=== PATIENT | male | born 1985 | race Two or more races ===

== ENCOUNTER 2024-12-12 11:08 | Emergency (ER) | payer MEDICAID, SELFPAY ==
[2024-12-12 11:09] VITALS: BMI 25.7
[2024-12-12 11:48] VITALS: BP 145/96; PULSE 84; RESP 17; TEMP 36.9; O2SAT 96
--- NOTE | 2024-12-12 12:37 | EDNOTE_ITS ---
<Statement entered by Vanessa Villalta MD - 12/13/24 07:10> As co-signing physician, I was present and available for consult prn. I concur with the plan and care as documented by the midlevel provider. ED General RME/HPI General Chief complaint: General Adult/Misc Complain Stated complaint: BRUISING INNER THIGHS, ANKLE SWELLING SINCE YEST Time Seen by Provider: 12/12/24 12:35 Arrival date/time: 12/12/24 11:08 CC: Nausea fatigue swollen feet mid back pain and bruising to the proximal medial thighs HPI: 4 days ago insidious onset no prior history similar events no medications allergic to latex denies fever chest pain shortness of breath or difficulty breathing. Patient denies hitting or scratching his inner thighs. Related Data Allergies Allergy/AdvReac Type Severity Reaction Status Date / Time latex Allergy Intermediate Itching Verified 12/12/24 11:12 Review of Systems Review of Systems Narrative Review of Systems: GEN: No fever, no chills, no weight loss EYES: No discharge, no visual changes, no pain HEENT: No ear pain, no congestion, no sore throat PULM: No shortness of breath, no cough, no congestion CV: No chest pain, no dyspnea on exertion, no palpitations GI: + nausea, no vomiting, no diarrhea, no pain, no constipation : No frequency, no urgency, no dysuria MUSC/SKEL: No joint pain, + back pain SKIN: No rash PSYCH: No hallucinations, no depression HEME/LYMPH: No easy bleeding or bruising tendencies NEURO: No weakness, no headache Past Medical History Past Medical History CARDIAC: Negative Congestive Heart Failure RESPIRATORY: Positive Asthma; Negative Chronic Obstructive Pulmonary Disease (COPD) GENITOURINARY: Negative Renal Disease ENDOCRINE: Negative Diabetes Mellitus Type 1 or Diabetes Mellitus Type 2 Social History SMOKING STATUS: Current every day smoker ED Exam Narrative Physical exam: [General: Obese not in any acute distress Head normocephalic HEENT: Eyes pupils are PERRLA EOMs are intact mouth pink moist membranes uvula is midline swallow symmetrical phonation is normal all the subsystems of HEENT are within acceptable limits Neck is supple nontender Chest equal chest rise nontender to palpation Respiratory: Clear to auscultation no wheezes crackles or rubs CV: Rate rhythm is regular no murmurs rubs or clicks Abdomen is distended secondary to body habitus soft nontender no masses positive bowel sounds all 4 quadrants Back: No CVA tenderness no spinous process tenderness from cervical spine thoracic and lumbar spine Skin: Ecchymosis to the medial thighs with the left thigh being a hand and/or scratch like pattern. Nonspecific pattern on the right inner thigh. Intact no petechiae rash induration ulceration or crepitus Extremities: Moving all extremity against resistance cap refill less than 2 seconds neurosensory intact. 2+ nonpitting edema in the lower extremities Neuro: Awake alert oriented x3 Glascow coma 15 no focal deficits] Course Quality Measures none Orders Category Date Time Status B-Type Natriuretic Peptide Stat Lab 12/12/24 13:00 Completed CBC Stat Lab 12/12/24 13:00 Completed Comprehensive Metabolic Panel Stat Lab 12/12/24 13:00 Completed Drug Screen,Urine Stat Lab 12/12/24 12:55 Completed LDH (Lactate Dehydrogenase) Stat Lab 12/12/24 13:00 Completed Magnesium Stat Lab 12/12/24 13:00 Completed Partial Thromboplastin Time Stat Lab 12/12/24 13:00 Completed Prothrombin Time with INR Stat Lab 12/12/24 13:00 Completed Troponin I Stat Lab 12/12/24 13:00 Completed Urinalysis Stat Lab 12/12/24 12:55 Completed Vital Signs Vital signs: Vital Signs Temperature 98.5 F 12/12/24 11:48 Pulse Rate 84 12/12/24 11:48 Respiratory Rate 17 12/12/24 11:48 Blood Pressure 145/96 H 12/12/24 11:48 Pulse Oximetry (%) 96 12/12/24 11:48 Oxygen Delivery Method Room Air 12/12/24 11:48 Discharge Plan Plan Patient Disposition: HOME (Self Care) Patient condition on transfer: Stable Prescriptions/Referrals Referrals: Paul Fischer MD [Primary Care Provider] - In 1 week Problem List Clinical Impression: Polysubstance abuse, Multiple ecchymoses of thigh Patient/Caregiver Discharge Instructions Other Activity Instructions:: There is no acute finding or infection in your body at this time I suspect this is all done by your hands. Please stop using street drugs follow-up with your primary care provider. Education Materials: ED Soft Tissue Contusion, ED Drug Abuse Print Language: [place] Stand Alone Forms: Lala Award Info., Patient Portal Info Letter PA/ANALYST Supervising Physician EDDIE Supervising Physician: Narayan Tam ENP [facility] Clinical Information Provided by patient Medical Records Reviewed [facility] Meds/Rx Considered, not Ordered None Labs/Rad/Tests considered, not Ordered None EKG EKG not done Lab Interpretation Lab(s) interpretation(s): CBC shows no acute leukocytosis anemia thrombocytopenia Coags within acceptable limits CMP shows no significant electrolyte imbalances renal impairment magnesium is low at 1.4 no other electrolyte imbalances renal impairment transaminitis or T. bili elevation. UA shows 1+ blood but no other indications of UTI U-Tox is positive for fentanyl cocaine and marijuana. Imaging Imaging interpretation: none Medication Administration(s) I suspect this is polysubstance abuse and paranoia of the patient's ecchymosis to the thighs appear to be self-inflicted however I cannot verify this at time there is no acute finding patient be discharged home. Diagnosis Differential diagnosis: ITP cellulitis allergic reaction Dispositon Disposition: Discharge Home
[2024-12-12 13:04] LABS: Collection Type, Urine Clean Catch
[2024-12-12 13:08] LABS: Bilirubin,Urine Negative (Negative); Blood,Urine 1+ (Negative); Clarity,Urine Clear (Clear/Hazy); Color,Urine Yellow (Lt Yel-Yel); Glucose, Urine Negative (Negative); Ketones,Urine Negative (Negative); Leukocyte Esterase,Urine Negative (Negative); Nitrite,Urine Negative (Negative); PH,Urine 5.5 (5.0-7.0); Protein,Urine Negative (Neg - Trace); RBC,Urine 7 /hpf (0-3); Specific Gravity,Urine 1.026 (1.001-1.035); Squamous Epithelial Cell,Urine < 1 /hpf (0-5); Urobilinogen,Urine Negative mg/dL (0.0-1.0); WBC,Urine 2 /hpf (0-5)
[2024-12-12 13:15] LABS: Amphetamine/Methamp Scrn,U Negative (Negative); Barbiturate Screen,Urine Negative (Negative); Benzodiazepines Screen,Urine Negative (Negative); Benzoylecgonine Screen, Ur Positive (Negative); Fentanyl Screen,Urine Positive (Negative); Opiate Screen,Urine Negative (Negative); THC Screen,Urine Positive (Negative)
[2024-12-12 13:20] LABS: Basophils # (Auto) 0.1 Thou/mm3 (0.0-0.2); Basophils % (Auto) 1 % (0-2.5); Eosinophils # (Auto) 0.7 Thou/mm3 (0.0-0.5); Eosinophils % (Auto) 7 % (0-10); Hematocrit 41.0 % (41.0-53.0); Hemoglobin 12.9 g/dL (13.5-16.0); Immature Granulocytes Auto 0.04 Thou/mm3 (0.00-0.00); Lymphocytes # (Auto) 2.2 Thou/mm3 (1.0-4.8); Lymphocytes % (Auto) 23 % (10-50); Mean Corpuscular HGB Conc 31.5 g/dl (31.0-37.0); Mean Corpuscular Hemoglobin 27.7 pg (25.0-35.0); Mean Corpuscular Volume 88 fL (80-100); Monocytes # (Auto) 0.8 Thou/mm3 (0.0-0.8); Monocytes % (Auto) 8 % (0-12); Neutrophils # (Auto) 5.9 Thou/mm3 (1.8-7.7); Neutrophils % (Auto) 62 % (37-80); Nucleated Red Blood Cell # 0.00 Thou/mm3 (0.00-0.00); Nucleated Red Blood Cell % 0 /100 WBC (0); Platelet Count 263 Thou/mm3 (140-440); RDW Standard Deviation 41.7 fL (35.1-43.9); Red Blood Count 4.66 Miln/mm3 (4.50-5.90); White Blood Count 9.5 Thou/mm3 (3.8-10.6)
[2024-12-12 13:35] LABS: B-Type Natriuretic Peptide 46 pg/mL (0-100)
[2024-12-12 13:37] LABS: Alanine Aminotransferase 30 U/L (10-49); Albumin, Serum 4.5 gm/dL (3.5-5.0); Albumin/Globulin Ratio 2.0 (1.2-2.2); Alkaline Phosphatase 71 U/L (46-116); Anion Gap 8 (7-16); Aspartate Amino Transferase 23 U/L (0-34); BUN/Creatinine Ratio 8 Ratio (12-20); Bilirubin,Total 0.3 mg/dL (0.3-1.2); Blood Urea Nitrogen 6 mg/dL (9-23); Calcium 9.2 mg/dL (8.3-10.6); Calcium (Corrected) 9.2 mg/dL (8.5-10.1); Carbon Dioxide 28.4 mMol/L (20.0-31.0); Chloride 105 mMol/L (98-107); Creatinine (Component) 0.8 mg/dL (0.6-1.3); Estimated Creatinine Clearance 133.3 mL/min (>60); Globulin 2.3 gm/dL (2.3-3.5); Glucose 104 mg/dL (74-106); INR 1.0 (0.9-1.3); LDH (Lactate Dehydrogenase) 230 U/L (120-246); Magnesium 1.4 mg/dL (1.6-2.6); Osmolality,Calculated 278 (275-295); Partial Thromboplastin Time 27.0 Seconds (22.0-36.0); Potassium 3.7 mMol/L (3.4-5.1); Prothrombin Time 10.7 Seconds (9.0-12.2); Sodium 141 mMol/L (136-145); Total Protein 6.8 gm/dL (5.7-8.2); Troponin I < 0.002 ng/mL (0.0-0.045); eGFR > 60 See Note
== END 2024-12-12 15:17 | disposition home or self-care (01) ==
PROVIDERS: Registered Nurse General Practice; Emergency Provider Emergency Medicine; PCP Family Medicine
DX: F19.10 Other psychoactive substance abuse, uncomplicated (principal); S70.12XA Contusion of left thigh, initial encounter; S70.11XA Contusion of right thigh, initial encounter; X58.XXXA Exposure to other specified factors, initial encounter
CPT/HCPCS: 36415; 80053; 80307; 81001; 83615; 83735; 83880; 84484; 85025; 85610; 85730; 99283